=== PATIENT | female | born 1955 | race Caucasian/White ===

== ENCOUNTER → 2016-10-06 | Outpatient (CLI) | payer BC ==
[~2016-10-06] MED LIST: BLOOD PRESSURE; JANUMET; OXYC-57 PO; [UNRECOGNIZED DRUG - OTHER]
--- NOTE | 2016-10-07 08:08 | MAMMOGRAPHY REPORT ---
BILATERAL DIGITAL SCREENING MAMMOGRAM TOMOSYNTHESIS WITH CAD: 10/06/2016 CLINICAL HISTORY: Routine screening. Patient has no complaints. TECHNIQUE: Breast tomosynthesis in addition to standard 2D mammography was performed. Current study was also evaluated with a Computer Aided Detection (CAD) system. COMPARISON: Comparison is made to exams dated: 10/06/2015 mammogram, 10/02/2014 mammogram, 10/01/2013 m ammogram, 09/28/2012 mammogram - [facility], 03/16/2007, and 03/15/2006. BREAST COMPOSITION: There are scattered areas of fibroglandular density in both breasts. FINDINGS: No suspicious masses, calcifications, or areas of architectural distortion are noted in ei ther breast. There has been no significant interval change compared to prior exams. IMPRESSION: ACR BI-RADS CATEGORY 1: NEGATIVE There is no mammographic evidence of malignancy. A 1 year screening mammogram is recommended. The pa tient will receive written notification of the results. Approximately 10% of breast cancers are not detected with mammography. A negative mammographic report should not delay biopsy if a clinically suggestive mass is present. Sarita Hampton M.D. /:10/06/2016 16:11:52 Prospecting Observer: Bella Schofield, [facility] letter sent: Normal 1/2 BI-RADS Code: ACR BI-RADS Category 1: Negative
== END | disposition home or self-care (01) ==
LOC: C.MAMM 09:43
PROVIDERS: ATTEND Family Medicine
DX: Z12.31 Encounter for screening mammogram for malignant neoplasm of breast (principal)

== ENCOUNTER → 2017-10-10 | Outpatient (CLI) | payer OTHER ==
--- NOTE | 2017-10-11 14:55 | MAMMOGRAPHY REPORT ---
BILATERAL DIGITAL SCREENING MAMMOGRAM TOMOSYNTHESIS WITH CAD: 10/10/2017 CLINICAL HISTORY: Routine screening. TECHNIQUE: The study was acquired using full field digital technology and interpreted from soft copy. Breast tomosynthesis in addition to standard 2D mammography was performed. Current study was also ev aluated with a Computer Aided Detection (CAD) system. COMPARISON: Comparison is made to exams dated: 10/06/2016 mammogram, 10/06/2015 mammogram, 10/02/2014 m ammogram, 10/01/2013 mammogram, 09/28/2012 mammogram - [facility], and 03/16/2007. BREAST COMPOSITION: There are scattered areas of fibroglandular density in both breasts. FINDINGS: There is a large benign rim calcification in the lateral anterior left breast. Other scatt ered benign rounded rim calcifications bilaterally. A coarsening grouping of calcifications in the 9 :00 posterior left breast most likely represents a degenerating fibroadenoma. No new suspicious mass, architectural distortion or cluster of microcalcifications is seen. IMPRESSION: ACR BI-RADS CATEGORY 1: NEGATIVE There is no mammographic evidence of malignancy. A 1 year screening mammogram is recommended.( 019) The patient will receive written notification of the results. Some breast cancers are not detected with mammography. A negative mammographic report should not mirian y biopsy if a clinically suggestive mass is present. Alida Sheets M.D. ay/:10/10/2017 15:58:23 Button Breaker Operator: RT Rambo(Margarita)(M), [facility] letter sent: Normal 1/2 BI-RADS Code: ACR BI-RADS Category 1: Negative
== END | disposition home or self-care (01) ==
LOC: C.MAMM 09:52
PROVIDERS: ATTEND Family Medicine
DX: Z12.31 Encounter for screening mammogram for malignant neoplasm of breast (principal)

== ENCOUNTER 2023-08-28 05:58 | Observation (INO) ==
--- NOTE | 2023-08-22 09:55 | Anesthesiology Consultation ---
Date of Service August 22, 2023 Assessment & Plan Chart Review Chart Review: Acceptable Risk for Surgery and Patient NOT seen in Pre Admission Testing Consults Requested none ASA ASA3 Proposed Anesthesia Anesthesia Type: General History Surgery Operation Date: 08/28/23 11:50 Proposed Procedures p Panniculectomy - Sierra Colvin MD Height/Weight Height: 5 ft 4.5 in Weight: 73.936 kg Allergies Allergy/AdvReac Type Severity Reaction Status Date / Time No Known Allergies Allergy Unknown Verified 08/09/23 13:49 Medications Home Medications Medication Instructions Recorded Confirmed Last Taken cholecalciferol (vitamin D3) 50 2,000 units PO QAM 11/26/18 08/09/23 Unknown mcg (2,000 unit) capsule lisinopril 10 mg tablet 10 mg PO QAM 11/26/18 08/16/23 Unknown aspirin 81 mg tablet,delayed 81 mg PO QAM 03/27/19 08/09/23 Unknown release Accu-Chek Fastclix Lancet Drum #400 ea 07/23/20 08/16/23 Unknown (lancets) BD Ultra-Fine Cammy Pen Needle 32 #400 ea 07/23/20 08/16/23 Unknown gauge x 5/32" (pen needle, diabetic) mecobalamin (vitamin B12) 1,000 1,000 mcg PO QAM 01/25/21 08/09/23 Unknown mcg chewable tablet glucagon 3 mg/actuation nasal 3 mg intranasal ONCE #2 ea 02/19/21 08/16/23 Unknown spray (Baqsimi) rosuvastatin 10 mg tablet 5 mg PO QAM 10/21/21 08/16/23 Unknown flash glucose sensor (FreeStyle #6 ea 12/12/22 08/16/23 Unknown Priscila 2 Sensor kit) Accu-Chek Guide test strips (blood #400 ea 06/19/23 08/16/23 Unknown sugar diagnostic) metformin 500 mg tablet,extended 1,000 mg (2 x 500 mg) PO BID #360 06/29/23 08/16/23 Unknown release 24 hr tabs semaglutide 2 mg/dose (8 mg/3 mL) 2 mg (0.75 mL) subcut Q7D #9 mL 06/29/23 08/16/23 Unknown subcutaneous pen injector insulin aspart U-100 100 unit/mL 50 unit subcut DAILY PRN if 05/29/24 06/05/24 Unknown (3 mL) subcutaneous pen (Novolog elevated bsg FlexPen U-100 Insulin aspart) insulin degludec 100 unit/mL (3 25 - 30 unit subcut HS 08/09/23 08/16/23 Unknown mL) subcutaneous pen (Tresiba FlexTouch U-100 insulin) oxycodone-acetaminophen 5 mg-325 1 tab PO Q4H PRN pain 3 days #18 08/16/23 08/16/23 Unknown mg tablet (Percocet) tabs Past Medical History Medical History Hearing deficit "left ear is better" Arthritis History of anemia Diabetes mellitus, type 2 Hypertension Hyperlipidemia Exercise / Class Metabolic Activity II 4-5 Yardwork/Stairs/Walk up hill Past Family History Family History Other No family history of adverse response to anesthesia Past Surgical History Surgical History History of colonoscopy H/O partial thyroidectomy benign tumor removed History of tooth extraction History of postoperative nausea and vomiting History of cholecystectomy History of hysterectomy Past Anesthesia History No Hx of Anesthesia Complications and No Family Hx of Anesthesia Complications History of PONV No Hx of PONV and No Hx of Motion Sickness Social History Smoking Status: Never smoker Do You Dip or Chew Tobacco: No Hx Alcohol Use: Yes alcohol intake frequency: holidays/special occasions only Hx Substance Use: No substance use type: does not use Testing Electrocardiogram Date: 08/18/23 Findings: + NSR @ (@ 62;? anter. infarct)
--- OUTSIDE RECORDS SUMMARY | 2023-08-28 06:03 | External Medical Summary | Continuity of Care Document ---
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 Name Role Phone Scot Nagy Primary Care Physician [phone] Encounter [facility] [id number] Date(s): 08/22/23 - 08/22/[address] [place] [address] [address] [phone] Encounter Diagnosis Rash(Discharge Diagnosis) - 08/22/23 Discharge Disposition: Home or Self Care Attending Physician: BAL Payne Tara Allergies, Adverse Reactions, Alerts No Known Allergies Assessment and Plan Extracted from: Title:rash Author:BAL Payne Tara Date:02/03 1.Rash Acute/Chronic: acute Goal:Resolution/ control Status:ongoing Data: records/pt report Plan: Possible insect bites or dermatitis from weeds. Although it does appear in the T1 dermatome, no pain or vesicles so less likely shingles. Will rxtriamcinolone as it is chest and arms.She has DM so want to avoid systemic steroids if possible. If symptoms do not resolve or worsen should be re-eval. Otherwise RTC as needed. Immunizations Given and Recorded Vaccine Date Status Refusal Reason tetanus/diphtheria/pertuss, acel (Tdap) 07/28/22 G iven tetanus/diphtheria/pertuss, acel (Tdap) 01/07/13 G iven pneumococcal 23-valent vaccine 07/28/22 Given pneumococcal 23-valent vaccine 01/03/11 Given pneumococcal 13-valent vaccine 10/09/19 Given influenza virus vaccine, inactivated 01/20/15 Give n influenza virus vaccine, inactivated 12/03/13 Give n influenza virus vaccine, inactivated 11/27/12 Give n influenza virus vaccine, inactivated 11/27/12 Give n influenza virus vaccine, inactivated 11/24/11 Give n Medications aspirin 81 mg oral delayed release capsule Start: 04/11/11 4:53:00 PM EST, 1 cap, PO, Daily, cap Start Date: 04/11/11 Status: Ordered Claritin Start: 03/16/23 9:01:00 AM EST, 10 mg =, PO, Daily Start Date: 03/16/23 Status: Ordered Crestor 5 mg oral tablet Start: 09/19/22 8:10:00 PM EDT, 1 tab, PO, Daily, Disp# 90 tab, Refills: 4, Pharmacy: [facility] Start Date: 09/19/22 Status: Ordered FreeStyle Priscila 2 - 14 day sensor Start: 07/28/22 8:38:00 AM EDT Start Date: 07/28/22 Status: Ordered lisinopril 10 mg oral tablet Start: 11/28/22 11:16:00 AM EDT, 1 tab, PO, Daily, Disp# 90 tab, Refills: 4, Pharmacy: [facility] Start Date: 11/28/22 Status: Ordered metFORMIN 500 mg oral tablet Start: 11/15/18 2:07:00 PM EDT, 2 tab, PO, bid Start Date: 11/15/18 Status: Ordered NovoLOG FlexPen Start: 09/04/18 8:03:00 AM EDT, See Instructions, 1-2 unts SC before meal prn Start Date: 09/04/18 Status: Ordered One Touch Ultra Test Strips 100 ct Start: 01/07/13 4:22:00 PM EDT, See Instructions, Disp# 100 each, Refills: 2, check BS 3-4 times a day, [facility] Start Date: 01/07/13 Status: Ordered Ozempic (1 mg dose) 4 mg/3 mL subcutaneous solution Start: 07/15/21 10:54:00 AM EDT Start Date: 07/15/21 Status: Ordered Tresiba FlexTouch 100 units/mL subcutaneous solution Start: 02/14/19 2:16:00 PM EST, See Instructions, 25-27 unit subQ in evening Start Date: 02/14/19 Status: Ordered triamcinolone 0.1% topical cream Start: 6/11/24 10:04:00 AM EDT, 1 appl, topical, bid, Disp# 454 g, Pharmacy: [id number] Start Date: 08/22/23 Status: Ordered Vitamin D3 2000 intl units oral capsule Start: 09/04/18 8:22:00 AM EDT, daily Start Date: 09/04/18 Status: Ordered Mental Status 08/22/23 Barriers to Learning one year Hearing de ficit Mandatory Health Literacy Documentation Yes Health Literacy Communication Barriers N ever Primary Language Micronesian Problem List Condition Confirmation Course Effective Dates Status H ealth Status Informant AK (actinic keratosis) Confirmed Active Hearing loss 1 Confirmed Active Hyperlipidemia Confirmed Active HYPERTENSION Confirmed Active Low back pain Confirmed Active Melanocytic nevus of trunk Confirmed Active Obesity Confirmed Active Tinnitus Confirmed Active Type 2 diabetes mellitus with cataract 2 Confirmed Active Weight monitoring Confirmed Active 1sees Dr. Babcock. had brain MRI - negative 2sees Dr. Nunn Diagnosis Diagnosis Type Effective Dates Health Status Clini jaylyn Service Informant Rash Discharge Diagnosis 08/22/23 Non-Specified Procedures Procedure Date Related Diagnosis Body Site Status Miscellaneous 1 11/2022 Completed Mammogram 2 11/03/22 Completed Mammogram 3 10/26/22 Completed Tooth extraction 04/13/22 Complete d Mammogram - screening 4 10/20/21 C ompleted Mammogram - screening 5 10/15/20 C ompleted Bone density finding 6 12/12/19 Co mpleted Mammogram 7 10/14/19 Completed Shave biopsy 8 11/15/18 Completed Mammogram 9 10/11/18 Completed Mammogram - screening 10 10/10/17 Completed Mammogram 11 10/06/16 Completed X-ray 12, 13 10/13/15 Completed X-ray of lumbosacral spine 14 10/13/15 Completed Mammogram - screening 15 10/06/15 Completed Mammogram - screening 16 10/02/14 Completed Colonoscopy 17, 18 03/20/14 Comple estefanía Hysterectomy 19 Completed Laparoscopic cholecystectomy Completed Thyroidectomy sample 20 C ompleted 1post placed for dental implant 2no evidence of architectural distortion within the left upper outer quadrant on the additional mammographic views. Findings are benign and consistent with normal fibroglandular tissue. There is no mammographic evidence of malignancy in the left breast. a 1 year screening mammogram is recommended. 3The possible sublte focal area of architectural distortion in the upper outer posterior left breastneeds additional evaluation. 4There is no mammographic evidence of malignancy. A 1 year screening mammogram is recommended (10/21/2022) 5There is no mammographic evidence of malignancy. A 1 year screening mammogram is recommended. The patient will receive written notification of the results. 62.1 AP Spine NORMAL 1.9 Dual Femur NORMAL 10-year probability of fx: Major oisteoporotic 5.8% Hip 0.1% Population: [place] 7there is no mamographi evidence of malignancy. A 1 year screening is recommended 8left gnosticist 9IMPRESSION: ACR BI-RADS CATEGORY 1: NEGATIVE There is no mammographic evidence of malignancy. A 1 year screening mammogram is recommended. 10There is no mammographic evidence of malignancy. A 1 year screening mammogram is recommended. The patient will receive written notification of the results. 11No mammographic evidence of malignancy. A 1 yr screening mammogram is recommended. The pt will receive written notification of the results 12No fractures. Mild left hip osteoarthritis 13No fractures. Mild right hip osteoarthritis. 14No fracture or subluxation within the lumbar spine. Mild to moderate degenerative changes within the lower lumbar spine as described above. 15Impression: There is no mammographic evidence of malignancy. A 1 year screening mammogram is recommended. The patient will receive written notification of the results. 16Impression: There is no mammographic evidence of malignancy. A 1 year screening mammogram is recommended. The patient will receive written notificaton of the results. 17COLO to TI Diverticulosis, internal hemorrhoids. [place] 5 years recommended for fhx of polyps : No Fhx of polyps per pt. colonoscopy every 10 years is appropriate. 19for fibroids 20hemithyroidectomy and nodule removal Vital Signs Most recent to oldest [Reference Range]: 1 Respiratory Rate 18 br/min (08/22/23 9:51 AM) Blood Pressure 132/82mmHg (08/22/23 9:51 AM) Cuff Pulse Pressure 50 mmHg (08/22/23 9:51 AM) Social History Social History Type Response Smoking Status Never smoked cigaret ciera Sex Female [facility] Outpt Note * BAL Payne Tara: PERFORM Event Display: [facility] Outpt Note Authored Date: [id number] Chief Complaint rash from gardening History of Present Illness She was outside gardening last week and picked up a load of weeds. That evening she developed rash on right arm and upper right chest. She did not not any insect bites. It is mildly itchy. Not painful.She did use after bite on the area. Review of Systems Constitutional: No fever, chills, sweats Pulmonary: No shortness of breath, dyspnea with exertion, cough, hemoptysis, wheezing, chest pain. Cardiovascular: No chest pain, palpitations, syncope, edema, cyanosis, claudication, orthopnea. Dermatologic: as per HPI Physical Exam Vitals & Measurements RR:18 BP:132/82 SpO2:98% PHQ2 Data(Data Documented on:08/22/2023 09:51) Emotional health assessment NEGATIVE head- normocephalic Pulmonary- chest expansion symmetric CV (cardiovascular)- RRR skin- several erythematousmaculesofvaryingsizeonrightarm andright chest. Neuro:Alert, Oriented. Assessment/Plan 1.Rash Acute/Chronic: acute Goal:Resolution/ control Status:ongoing Data: records/pt report Plan: Possible insect bites or dermatitis from weeds. Although it does appear in the T1 dermatome, no pain or vesicles so less likely shingles. Will rxtriamcinolone as it is chest and arms.She has DM so want to avoid systemic steroids if possible. If symptoms do not resolve or worsen should be re-eval. Otherwise RTC as needed. Problem List/Past Medical History Ongoing AK (actinic keratosis) Hearing loss Hyperlipidemia HYPERTENSION Low back pain Melanocytic nevus of trunk Obesity Tinnitus Type 2 diabetes mellitus with cataract Weight monitoring Resolved Hip pain Thyroid tumor Procedure/Surgical History Miscellaneous| Service Date: 11/2022Mammogram| Service Date: 11/03/2022Mammogram| Service Date: 10/26/2022Tooth extraction| Service Date: 04/13/2022Mammogram - screening| Service Date:10/20/2021Mammogram - screening| Service Date: 10/15/2020one density finding| Service Date: 1 Mammogram| Service Date: 10/14/2019Shave biopsy| Service Date: 11/15/2018Mammogram| Service Date: 10/11/2018Mammogram - screening| Service Date: 10/10/2017Mammogram| Service Date: 10/06/2016X-ray of lumbosacral spine| Service Date: 10/13/2015X-ray| Service Date: 016Mammogram - screening| Service Date: 10/06/2015Mammogram - screening| Service Date: 10/02/2014Colonoscopy| Service Date: 03/20/2014Thyroidectomy sampleLaparoscopic cholecystectomyHysterectomy Medications aspirin(aspirin 81 mg oral delayed release capsule), 81 mg= 1 cap, PO, Daily cholecalciferol(Vitamin D3 2000 intl units oral capsule) diabetes supplies(FreeStyle Priscila 2 - 14 day sensor) diabetic supplies(One Touch Ultra Test Strips 100 ct), See Instructions, 2 refills insulin aspart(NovoLOG FlexPen), See Instructions insulin degludec(Tresiba FlexTouch 100 units/mL subcutaneous solution), See Instructions lisinopril(lisinopril 10 mg oral tablet), 10 mg= 1 tab, PO, Daily, 4 refills loratadine(Claritin), 10 mg, PO, Daily metFORMIN(metFORMIN 500 mg oral tablet), 1000 mg= 2 tab, PO, bid rosuvastatin(Crestor 5 mg oral tablet), 5 mg= 1 tab, PO, Daily, 4 refills semaglutide(Ozempic (1 mg dose) 4 mg/3 mL subcutaneous solution) triamcinolone topical(triamcinolone 0.1% topical cream), 1 appl, topical, bid Allergies NKA Social History Smoking Status Never smoked cigarettes Alcohol - Low Risk Exercise - Regular exercise Exercise type:Walking Tobacco - Denies Tobacco Use Family History COPD: Mother. Cataract: Father. Diabetes mellitus: PGM. Diverticulitis: Father. Laryngeal: Father. Health Status Family Member(s) Immunizations Vaccine Date Status tetanus/diphtheria/pertuss, acel (Tdap) 07/28/2022 Given pneumococcal 23-valent vaccine 07/28/2022 Given pneumococcal 13-valent vaccine 10/09/2019 Given influenza virus vaccine, inactivated 01/20/2015 Given influenza virus vaccine, inactivated 12/03/2013 Given tetanus/diphtheria/pertuss, acel (Tdap) 01/07/2013 Given influenza virus vaccine, inactivated 11/27/2012 Given influenza virus vaccine, inactivated 11/27/2012 Given influenza virus vaccine, inactivated - Not Given Comments : Already Done influenza virus vaccine, inactivated 11/24/2011 Given pneumococcal 23-valent vaccine 01/03/2011 Given Recommendations Health Maintenance Pending(in the next year) OverDue Medicare Annual Wellness Visit due01/20/22and every 1year Adult Influenza Vaccine due09/09/22and every 1year Due Adult COVID-19 Vaccination due08/22/23Unknown Frequency Adult Social Determinants of Health Screening due08/22/23Unknown Frequency Hepatitis C Screening due08/22/23One-time only Shingles Vaccine due08/22/23One-time only Due In Future Diabetes Management A1c not due until01/31/24and every 366day Body Mass Index not due until02/10/24and every 366day Colorectal Cancer Screening not due until03/17/24and every 10year Satisfied(in the past 1 year) Satisfied Body Mass Index on02/09/23.Satisfied by NICOLAS Valera Bobbi Breast Cancer Screening on11/03/22.Satisfied by JOSE ALFREDO Muse Lynnae Diabetes Management A1c on01/30/23.Satisfied by Contributor_system, [employer] Diabetic Eye Exam on11/02/22.Satisfied by JOSE ALFREDO Muse Lynnae Lipid Screening on01/30/23.Satisfied by Contributor[employer]system, [employer] Electronic Signature on File Electronically Reviewed/Signed by: BAL Osullivan Author Signature Dt/Tm:08/22/2023 11:02 AM Department of Family Medicine TB Patient Care team information Care Team Personnel Name: DO Taylor Kristen M Position: Physician - Family Med Member Role: Lifetime Relationship Address: Address: [address] [place] [id number] [place] Name: MD Nagy Juan Position: Physician - Family Med Member Role: Primary Care Provider Address: Address: [address] [place] [id number] [place] Care Team Related Persons Name: SOULEYMANETOM CARBALLO Address: home [address] [place] [phone]"
[2023-08-28] MEDS: LR 15ML/HR IV SCH (06:44)
--- NOTE | 2023-08-28 06:50 | History & Physical Bridge Note ---
Date of Service August 28, 2023 History & Physical Bridge Note I have examined the patient, reviewed the History & Physical and in the interval since the performance of the History & Physical I have noted the following changes of clinical significance: topical steroid for rash due to narayan, no oral steroids
[2023-08-28] MEDS ORDERED: ONDANSETRON INJ 2 MG/ML 2 ML VIAL ONE (07:07)
[2023-08-28] MEDS ORDERED: PROPOFOL IV EMULSION 10 MG/ML 20 ML VIAL IV ONE (07:07)
[2023-08-28] MEDS ORDERED: ROCURONIUM BROMIDE 10 MG/ML 5 ML VIAL IV ONE (07:07)
[2023-08-28] MEDS ORDERED: fentaNYL citrate PF 100 MCG/2 ML VIAL ONE ×2 (07:08→08:14)
[2023-08-28] MEDS ORDERED: MIDAZOLAM HCL 1 MG/ML 2ML VIAL ONE (07:08)
[2023-08-28] MEDS ORDERED: ATROPINE SULFATE 0.1 MG/ML 10ML SYR IV PRN (07:18)
[2023-08-28] MEDS ORDERED: ePHEDrine sulfate 50 MG/ML AMP IV PRN (07:18)
[2023-08-28] MEDS ORDERED: fentaNYL citrate PF 100 MCG/2 ML VIAL IV PRN (07:18)
[2023-08-28] MEDS ORDERED: SCOPOLAMINE 1 MG/72 HR TDSY PATCH TD ONE (07:26)
[2023-08-28] MEDS: TRANEXAMIC ACID 1,000 MG **IV Pre-op IV SCH (07:31)
[2023-08-28] MEDS: ceFAZolin 2000MG 2,000 MG/15 ML SYR IV SCH ×2 (08:00→17:36)
[2023-08-28] MEDS ORDERED: ACETAMINOPHEN 1000 MG/100 ML IV IV ONE (08:47)
[2023-08-28] MEDS: TRANEXAMIC ACID 1,000 MG **IV Intra-op IV SCH (09:19)
[2023-08-28] MEDS ORDERED: ePHEDrine sulfate 50 MG/5 ML SYR ONE (09:37)
[2023-08-28] MEDS ORDERED: SUGAMMADEX SODIUM 200 MG/2 ML VIAL IV ONE (09:51)
[2023-08-28] MEDS: LIDOCAINE 1%/EPINEPHRINE 1:100,000 50 ML VIAL INJ ONE (09:55)
[2023-08-28] MEDS: BUPIVACAINE 0.25% PF 30 ML VIAL ONE (09:55)
--- NOTE | 2023-08-28 10:05 | Post Operative Brief Note ---
PG Immediate Post Op with CF Date of Surgery August 28, 2023 Pre & Post Diagnosis Operation Date: 08/28/23 07:30 Pre-Op Diagnosis: Abdominal Pannus Post-Op Diagnosis: Abdominal Pannus I identified the patient and participated in the time-out.: Yes Procedure Operation Date: 08/28/23 07:30 Actual Procedures p Panniculectomy(Not Applicable) - Sierra Colvin MD Surgeon Sierra Colvin MD [employer] Consultant Charline Casper PA-C Estimated Blood Loss 15 Findings Consistent with Post-Op Diagnosis Specimens Specimen Description: A. Abdominal Pannus Drains Patterson Catheter and Merritt-Mendez Drain (x2)
[2023-08-28] MEDS: ONDANSETRON INJ 2 MG/ML 2 ML VIAL IV PRN (10:43)
[2023-08-28] MEDS: PROMETHAZINE HCL 6.25 MG in SODIUM CHLORIDE 0.9% 50 ML IV PRN (11:07)
--- NOTE | 2023-08-28 11:36 | Anesthesiology Progress Note ---
Date of Service August 28, 2023 Anesthesia Post Procedure Vital Signs Vital Signs: Temp Pulse Resp BP Pulse Ox O2 Del Method O2 Flow Rate 08/28/23 11:30 56 L 18 141/89 H 97 Nasal Cannula 2 08/28/23 11:20 36.2 C L 59 L 13 150/82 H 98 Nasal Cannula 2 08/28/23 11:10 64 15 151/85 H 97 Nasal Cannula 2 08/28/23 11:00 63 14 139/79 95 Nasal Cannula 2 08/28/23 10:50 61 14 135/78 95 Nasal Cannula 2 08/28/23 10:40 63 16 150/84 H 95 Nasal Cannula 2 08/28/23 10:30 64 16 144/65 H 100 Oxymask 4 08/28/23 10:22 36 C L 74 16 122/67 100 Oxymask 6 08/28/23 06:23 36.6 C 82 18 135/86 97 Room Air Pain Intensity Right Anterior Arm: Pain Intensity: 2 Abdomen: Pain Intensity: 3 Transfer of Care Handoff Completed per policy Notes Mental Status: alert / awake / arousable Patient Amnestic to Procedure: Yes Nausea / Vomiting: adequately controlled Pain: adequately controlled Airway Patency, RR, SpO2: stable & adequate BP & HR: stable & adequate Hydration State: stable & adequate Anesthetic Complications: no major complications apparent
[2023-08-28] MEDS ORDERED: NON-FORMULARY MEDICATION (Insulin Aspart U-100 [Novolog Flexpen U-100 Insulin] 100 unit/mL SQ PRN (12:38)
[2023-08-28] MEDS ORDERED: PHARMACY GLYCEMIC MGMT CONSULT PRN (12:38)
[2023-08-28] MEDS ORDERED: MoRPHine SULFATE 4 MG/ML 1 ML CARP\\VIAL IV PRN (12:38)
[2023-08-28] MEDS ORDERED: PROMETHAZINE HCL 12.5 MG in SODIUM CHLORIDE 0.9% 50 ML IV PRN (12:38)
[2023-08-28] MEDS ORDERED: oxyCODONE/ACETAMINOPHEN 5mg/325mg TAB PO PRN (12:38)
[2023-08-28] MEDS ORDERED: LORazepam 0.5 MG TAB PO PRN (12:38)
[2023-08-28] MEDS ORDERED: ONDANSETRON INJ 2 MG/ML 2 ML VIAL IV PRN (12:38)
[2023-08-28] MEDS ORDERED: diphenhydrAMINE 50 MG/ML VIAL IV PRN (12:38)
[2023-08-28] MEDS ORDERED: ACETAMINOPHEN 325 MG TAB PO PRN (12:38)
[2023-08-28] MEDS ORDERED: diphenhydrAMINE Capsule 25 MG CAP PO PRN (12:38)
[2023-08-28] MEDS: SODIUM CHLORIDE 0.9% 50 ML BAG ONE (12:44)
[2023-08-28] MEDS: PROMETHAZINE HCL INJ 25 MG/ML 1 ML VIAL ONE (12:44)
[2023-08-28] MEDS ORDERED: GLUCOSE 10 TAB/TUBE PO PRN (13:00)
[2023-08-28] MEDS ORDERED: CARBOHYDRATES FOR HYPOGLYCEMIA PO PRN (13:00)
[2023-08-28] MEDS ORDERED: GLUCOSE 40% GEL 15 GM TUBE PO PRN (13:00)
[2023-08-28] MEDS ORDERED: DEXTROSE 50% 50 ML SYRINGE IV PRN (13:00)
[2023-08-28] MEDS ORDERED: GLUCAGON FOR INJ 1 MG VIAL IM PRN (13:00)
--- NOTE | 2023-08-28 13:59 | Pharmacy Report ---
Pharmacy Glycemic Short Note 2 - Date of Service August 28, 2023 - Glycemic Short BSG Results (Last 24 hours): 08/28/23 08/28/23 06:15 10:29 POC Glucose 117 H 120 H OUTPATIENT ANTIDIABETIC REGIMEN: * Tresiba 25-30 units HS, metformin 1 gm bid, ozempic, Novolog TIDM ASSESSMENT: * 67 year old female, now s/p surgery - POD 0. Pharmacy consulted for glycemic management. Postop BSG value 120 mg/dL. Plan to start novolog with lunch time check. Will add on scale for basal at HS. PLAN FOR INPATIENT GLYCEMIC CONTROL: * Hold outpatient oral diabetes medications * Basal insulin * Lantus 20-25 units HS * Bolus insulin * NovoLog per scale ACHS or Q6hrs while NPO * Goal Range: Low 110 mg/dL - High 140 mg/dL * Correction Factor: 30 mg/dL/unit * Nutritional / Prandial insulin per carb ratio of 1 unit per 10 grams CHO consumed
[2023-08-28] MEDS: LACTATED RINGER'S 1,000 ML IV SCH (14:12)
[2023-08-28] MEDS: INSULIN ASPART PER UNIT CHARGE SC SCH (14:21)
--- NOTE | 2023-08-28 14:41 | Operative Report ---
PG Post Operative Report Pre & Post Diagnosis Operation Date: 08/28/23 07:30 Pre-Op Diagnosis: Abdominal Pannus Post-Op Diagnosis: Abdominal Pannus I identified the patient and participated in the time-out.: Yes Procedure Operation Date: 08/28/23 07:30 Actual Procedures p Panniculectomy(Not Applicable) - Sierra Colvin MD Surgeon Sierra Colvin MD Patient Navigator Charline Casper PA-C Estimated Blood Loss 15 Findings Consistent with Post-Op Diagnosis Specimens abdominal pannus Drains yogesh x2 Anesthesia Type General Complications none Indications overhanging abdominal pannus, intertrigo Description of Procedure Risks, benefits, and alternatives of the procedure were explained to the patient who agreed and signed consent. She was identified and marked in the preoperative holding area. She was brought to the operating room where she was positioned supine and placed under general anesthesia without incident. Patterson catheter was placed. Surgical site was prepped and draped sterilely. A time-out procedure was performed. I reassessed my markings which included a lower horizontal abdominal incision with the midportion 9 cm above the vulvar commissure. Incision was marked bilaterally to the ASIS. I began by injecting 1% lidocaine with epinephrine along the planned incision. The lower abdominal incision was made using a 15-blade scalpel to incise epidermis and superficial dermis followed by electrocautery to incise deep dermis, subcutaneous fat, Jesse's fascia down to the abdominal wall. Care was taken to bevel superiorly in order to avoid encountering the inguinal region. Electrocautery was used to elevate the anterior abdominal skin flap ligating the perforating vessels with electrocautery. Dissection was carried up to the level of the umbilicus in the midline. At this point, a 15-blade scalpel was used to circumscribe the umbilicus. A vertical midline incision was then made from the incision to the umbilicus and divided in the midline using electrocautery. The umbilicus was then dissected out using electrocautery down to abdominal wall. The umbilical stalk appeared viable throughout the procedure. At this point, I limited my dissection to a very narrow tunnel midline to facilitate inset of the umbilicus. In order to facilitate inset of the umbilicus, dissection was continued for about an additional 6 cm superior to the umbilicus. Patient had a large right upper quadrant open cholecystectomy scar which did limit my ability to undermine any further past the anatomic waistline crease as I wanted to ensure adequate perfusion was maintained to the tissue inferior to the scar. At this point, the bed was flexed and the mid portion of the superior skin flap was inset above the mons pubis using 2-0 Vicryl suture. Skin flaps were marked for excision. A 15-blade scalpel was used to make these incisions and the incision was deepened through dermis, subcutaneous fat, Jesse's fat using electrocautery. A 15 Albanian Oliver drains were placed in the wound bed and brought out through a separate stab incision in the mons pubis. The drains were sutured into place using 3-0 nylon. The umbilicus was brought out through an inverted triangular incision in the abdominal wall. Wound closure was then begun lateral to medial using 2-0 Vicryl Jesse's fascia sutures, 2-0 Vicryl deep dermal sutures, 2-0 PDO running superficial Quill suture, 3-0 Monocryl running subcuticular suture. Umbilicus was brought out through the inverted triangle incision and was sutured into place using 4-0 chromic half buried horizontal mattress sutures. The umbilicus was dressed using Xeroform and the incision was dressed using Dermabond Prineo followed by dry dressings and an abdominal binder. Prior to closure, a total of 10 mL of 0.25% Marcaine plain were injected into the fascia as well as along the incisions. The procedure was tolerated well. The patient was awakened and transferred to recovery in satisfactory condition. Charline Casper PA-C was present and scrubbed throughout the entire procedure and was instrumental in providing retraction of the pannus and assisting in simultaneous wound closure. I attest to the content of the Intraoperative Record and any orders documented therein. Any exceptions are noted below.
[2023-08-28] MEDS: MoRPHine SULFATE 2 MG/ML CARP IV PRN (20:22)
[2023-08-28] MEDS: LANTUS PER UNIT CHARGE SC SCH (22:00)
[2023-08-29] MEDS: oxyCODONE/ACETAMINOPHEN 5mg/325mg TAB PO PRN (03:59)
--- NOTE | 2023-08-29 07:17 | Surgery Progress Note ---
Date of Service August 29, 2023 Assessment & Plan (1) S/P panniculectomy: Plan: POD#1 Patient is doing well. Prior to dc home must have winters removed and void, ambulate in halls. All questions answered, office follow-up tomorrow Admission and Anticipated Discharge Date Admission Date: August 28, 2023 Devang Ortiz is resting comfortably in bed. Winters has not been removed. She has not gotten out of bed. She has good pain control and is tolerating a regular diet. Physical Exam Physical Exam: scant serosang output in drains. abd binder in place. no saturation on gauze Results & Data Vital Signs (Past 12 Hours) Vital Signs Temp Pulse Pulse Resp BP BP Pulse Ox 08/29/23 07:04 36.3 C L 63 18 98/63 L 93 08/29/23 03:04 36.8 C 82 16 111/71 95 08/28/23 23:11 36.7 C 73 16 114/71 95 08/28/23 19:16 36.5 C 71 18 108/70 94 O2 Del Method 08/29/23 07:04 Room Air 08/29/23 03:04 Room Air 08/28/23 23:11 Room Air 08/28/23 19:16 Room Air PG Care Time/CCT Total # of Minutes Spent Total Time Spent with Patient: Total time spent is greater than 50% in coordination of care (as documented) at patient's floor/unit and/or counseling patient: Coding Level of Care Code 69752 Post Operative Follow-Up Diagnoses S/P panniculectomy Z98.890
[2023-08-29] MEDS ORDERED: ROSUVASTATIN CALCIUM 5 MG TAB PO SCH (09:00)
[2023-08-29] MEDS ORDERED: lisinopril 10 MG TAB PO SCH (09:00)
[2023-08-29] MEDS ORDERED: MULTIVITAMIN TAB PO SCH (09:00)
[2023-08-29] MEDS ORDERED: ENOXAPARIN INJ 40 MG/0.4 ML SYR SQ SCH (09:00)
[2023-08-29] MEDS: metFORMIN HCL ER 500 MG TABCR PO SCH (09:24)
--- NOTE | 2023-08-31 14:36 | Discharge Summary ---
Date of Service August 31, 2023 Admission HPI Per Admitting Provider History of weight loss, abdominal pannus Admission Exam Per Admitting Provider abdominal pannus with chronic skin rashes Principal Diagnosis abdominal pannus Discharge Exam scant serosang output in drains. abd binder in place. no saturation on gauze Discharge Data Allergies Allergy/AdvReac Type Severity Reaction Status Date / Time No Known Allergies Allergy Unknown Verified 08/28/23 06:19 Procedures Performed Operation Date: 08/28/23 07:30 Actual Procedures p Panniculectomy(Not Applicable) - Sierra Colvin MD Hospital Course (1) S/P panniculectomy: Patient presented to [facility] with history of abdominal pannus. She was taken to the OR and underwent panniculectomy. There were no intraoperative complications. She was taken to recovery and transferred to med/surg for observation. On POD#1, she was feeling well. She was tolerating a regular diet and ambulating. She was able to void after catheter was removed. On exam, her vitals were stable. Her incisions were CDI. Her drains had appropriate output. She was discharged home with instructions to follow-up in the office in one day. Total Time Total Time Spent Total Time Spent (In Minutes): 15 Total Time Includes: Examination of the Patient and Communication With Other Providers Discharge Plan Discharge Items Patient Disposition: Home - Self-Care Reason For Visit: Abdominal Pannus Discharge Diagnosis: s/p panniculectomy Activity: As commented below Non-emergency contact: Surgeon Call non-emergency contact if: you have any medication questions and you have a fever Follow-up/Referrals: Charline Casper PA-C [Physician Shipyard Painting Supervisor] - Scot Nagy MD [Primary Care Provider] - Diet: Regular Addtl Attending Provider Instructions: ACTIVITY RECOMMENDATIONS: __Normal activities _x_No bending, lifting or straining. Do not stand or lay flat until it is easily comfortable. __No driving __Driving allowed when you are off pain medications _x_Walking permitted and encouraged __You should have help at home for ___ days DRESSINGS: __No dressings required _x_Keep dressings dry/in place until first office visit __Remove dressings ___ and leave dressings off __Apply ice ___ days __Remove dressings and reapply garment __Apply antibiotic ointment (Bacitracin, Neosporin, etc) to wounds 3-4 times/day for 10 days BATHING: _x_Keep dressings dry _x_Sponge bathing permitted away from your surgical dressings __Showering permitted _x_No swimming, hot tubs or soaking in a tub MEDICATIONS: Resume previous medications unless instructed otherwise by your surgeon. _x_Do not use aspirin, Motrin, Advil or Ibuprofen as these may promote bleeding. Please use Tylenol. _x_Prescription(s) provided: pain medication was provided at your last office visit OTHER INSTRUCTIONS: _x_Record drain output 2-3 times per day SPECIAL CARE INSTRUCTIONS: * It is normal to have a mild fever after surgery. If your temperature is higher than 101.5 degrees F, please call the office at [phone]. * Constipation is a typical side effect of pain medication. An [id number] stool softener will help relieve this. * Leaking around surgical drains may occur and should not cause concern. Sometimes these drains become clogged. If this happens, remove the bulb and milk the clot out of the tube, then replace the bulb. * Drainage from wounds after liposuction is normal and should be expected. Garments will become soiled. You should protect furniture and bedding. This drainage should mostly subside within 2-3 days. Leave garments in place unless instructed to remove them. * If you have unusual drainage from a wound or are concerned you have an infection or have any questions or concerns, please call the office at [phone]. FOLLOW UP VISIT: If not already scheduled, please call the office, , when you return home after surgery to schedule an appointment to be seen in _1__ days. Pending Studies at Discharge: Yes Stand-Alone Forms: My Intra-Cellular Therapies, Smoking Cessation Medications and DC Order Prescriptions: Continued (DME) lancets [Accu-Chek Fastclix Lancet Drum] Misc See Dose Instructions .ROUTE .MEDSUPPLY Qty: 400 3RF Dose Instruction: As directed Rx Instructions: use 4 daily to test blood sugars (DME) pen needle, diabetic [BD Ultra-Fine Cammy Pen Needle] 32 gauge x 5/32" needle See Rx Instructions .ROUTE .MEDSUPPLY Qty: 400 3RF Rx Instructions: use 4 needles daily (DME) FreeStyle Priscila 2 Sensor Kit See Rx Instructions .Route Qty: 6 3RF Rx Instructions: Change every 14 days (DME) Accu-Chek Guide test strips Strip See Rx Instructions .ROUTE .MEDSUPPLY Qty: 400 3RF Rx Instructions: Test blood sugars 4 metformin 500 mg tablet extended release 24 hr 1,000 mg PO BID Qty: 360 2RF mecobalamin (vitamin B12) 1,000 mcg tablet,chewable 1,000 mcg PO QAM Hold Instructions: SURGERY Baqsimi 3 mg/actuation spray,non-aerosol 3 mg intranasal ONCE Qty: 2 5RF lisinopril 10 mg tablet 10 mg PO QAM cholecalciferol (vitamin D3) 2,000 unit capsule 2,000 units PO QAM Hold Instructions: SURGERY rosuvastatin 10 mg tablet 5 mg PO QAM oxycodone-acetaminophen [Percocet] 5-325 mg tablet 1 tab PO Q4H PRN (Reason: pain) 3 Days Qty: 18 0RF Rx Instructions: Initial therapy. insulin aspart U-100 [Novolog FlexPen U-100 Insulin] 100 unit/mL (3 mL) insulin pen 50 unit subcut DAILY PRN (Reason: if elevated bsg) Rx Instructions: Inject before each meal insulin degludec [Tresiba FlexTouch U-100] 100 unit/mL (3 mL) insulin pen 25 - 30 unit subcut HS Ozempic 2 mg/dose (8 mg/3 mL) pen injector 2 mg subcut Q7D Patient Comments: takes on Sundays Discontinued aspirin 81 mg tablet,delayed release (DR/EC) 81 mg PO QAM Hold Instructions: SURGERY Discharge Orders: Discharge Order (Routine); Ordered 08/29/23 Ordered By: Charline Casper Admission Data Admit Date/Time: 08/28/23 10:23 Attending Provider: Sierra Colvin Admit Provider: Sierra Colvin Primary Care Provider: Scot Nagy Other Interventions: Discharge Summary Assessment (RN) Last Done: 08/29/23 09:08 Coding Level of Care Code 27588 OBS Care - Discharge Diagnoses S/P panniculectomy Z98.890
== END 2023-08-29 09:52 | disposition home or self-care (01) ==
LOC: ASU 05:58 → 3N 05:58